=== PATIENT | female | born 1995 ===

== ENCOUNTER 2021-12-08 13:54 | Emergency (ER) | payer OTHER, SELFPAY ==
--- NOTE | ~2021-12-08 | XR_ITS ---
EXAMINATION: CHEST 2 VIEWS CLINICAL INFORMATION: COUGH, PAIN IN BACK WITH DEEP BREATHS. COMPARISON: No recent pertinent prior studies are available for comparison. TECHNIQUE: PA and lateral views of the chest obtained. FINDINGS: Lungs well-expanded. There is minimal blunting the right costophrenic angle suggesting a tiny right effusion and minimal atelectatic change. No focal infiltrate, edema, or pneumothorax. Cardiac and mediastinal silhouettes within normal limits for size. No acute bony abnormality. XR/XR chest 2V IMPRESSION: Tiny right effusion with minimal right basilar markings more likely reflecting a component of atelectasis
[2021-12-08 14:34] LABS: COVID-19 Test Negative (Negative); IDNOW Serial# 16C4AD1C
[2021-12-08 14:35] LABS: IDNOW Serial# 55D5AD1C; Influenza A Negative (Negative); Influenza B2 Negative (Negative)
[2021-12-08 14:37] VITALS: BP 107/72; PULSE 115; RESP 20; TEMP 38.2; O2SAT 95
--- NOTE | 2021-12-08 14:39 | ED.ASTHMA ---
HPI - Asthma General Chief Complaint: Asthma Stated Complaint: Asthma Time Seen by Provider: 12/08/21 14:38 Source: patient and family Mode of arrival: ambulatory Limitations: no limitations History of Present Illness HPI Narrative: 26-year-old female with a history of asthma here with reports of cough, wheezing, chest discomfort with coughing, subjective fevers since last evening. Patient using her albuterol inhaler, nebulizer with continued symptoms. Patient tells me she ran out of her Purfreshir for a few months. She moved to [facility] [place] from [place] and has not established a primary care doctor. She does have an appointment in February for her initial visit. Patient tells me she has history of multiple admissions in [place] for asthma exacerbation with several ICU admissions. No history of intubation. NO leg swelling, leg pain, SOB, no OCP use Related Data Previous Rx's Medication Instructions Recorded albuterol sulfate 2.5 mg (3 mL) INHALATION Q4H PRN 12/08/21 #75 ml benzonatate 200 mg capsule 200 mg PO TID PRN #20 cap 12/08/21 montelukast 10 mg tablet 10 mg PO DAILY #60 tab 12/08/21 (Singulair) prednisone 20 mg tablet 40 mg PO DAILY #10 tab 12/08/21 Allergies Allergy/AdvReac Type Severity Reaction Status Date / Time No Known Allergies Allergy Verified 12/08/21 14:05 Review of Systems Review of Systems: Yes all other systems are reviewed and are negative Constitutional: Constitutional: Reports no additional constitutional complaints, Denies body ache(s), Denies chills, Reports fever(s) (subjective ), Denies headache(s) and Denies weakness Eyes: Eyes: Reports no additional eye complaints and Denies change in vision ENT: Reports system reviewed and no additional complaints, except as documented, Denies dizziness, Denies headache(s), Denies nasal congestion, Denies nasal discharge and Denies neck pain Cardiovascular: Cardiovascular: Reports no additional cardiovascular complaints, Denies chest pain, Denies leg edema and Denies dyspnea Respiratory: Respiratory: Reports no additional respiratory complaints, Reports cough, Denies dyspnea and Reports wheezing Gastrointestinal: Gastrointestinal: Reports no additional gastrointestinal complaints, Denies abdominal pain, Denies diarrhea, Denies nausea and Denies vomiting Genitourinary: Genitourinary: Reports no additional female genitourinary complaints and Denies urinary incontinence Musculoskeletal: Musculoskeletal: Reports no additional musculoskeletal complaints, Denies back pain, Denies arthralgias, Denies joint swelling, Denies neck pain, Denies numbness and Denies tingling Integumentary/Breasts: Skin/Breast: Reports system reviewed and no additional complaints, except as docu and Denies rash Neurologic: Reports system reviewed and no additional complaints, except as documented, Denies Abnormal speech present, Denies dizziness, Denies headache(s), Denies numbness, Denies tingling and Denies weakness Allergic/Immunologic: Allergic/Immunologic: Reports wheezing [facility] Past Medical History Attestation statement: The following information was validated with the patient. Source: old records reviewed and nursing notes reviewed Medical History Asthma Social History Social History Alcohol intake: current Alcohol intake frequency: holidays/special occasions only Patient Tobacco Use Status: Never used Tobacco Use of substances other than those prescribed or required for medical reasons: No Advance Directives: No Advance Directives Information Provided: No Physical Exam Vital Signs: Vital Signs: Last Vital Signs Temp 100.3 F 12/08/21 16:28 Pulse 118 H 12/08/21 16:28 Resp 18 12/08/21 16:28 BP 115/66 12/08/21 16:28 Pulse Ox 93 12/08/21 16:28 BMI result Body Mass Index 0.0 Const: General: cooperative, healthy appearing, comfortable and no acute distress Orientation/consciousness: patient oriented x3 Limitations: no limitations HEENT: Head: Yes normal to inspection Ears: hearing grossly normal bilaterally General nose exam: Normal external nose present Face and sinus: Yes normal facial exam Mouth: Normal oral and palatal mucosa present Throat: Yes posterior oropharynx normal Eyes: General: appearance normal, both eyes and all related structures Pupils: Equal, round and reactive pupils present Neck: Neck: Yes normal visual inspection Chest: Chest palpation & inspection: normal inspection of the chest Resp: Other: Diminished breath sounds-mild tachypnea Cardio: Rate: regular rate Rhythm: regular rhythm Peripheral pulses: Peripheral pulses 2+ throughout GI: Inspection: Yes normal to inspection Palpation (GI): Soft to palpation and nontender Auscultation: normal bowel sounds Back/Spine/Pelvis: Thoracic/Lumbar Spine: thoracic and lumbar spine normal to inspection Skin: General skin exam: no rashes or lesions noted Neuro: General: patient oriented x3, no focal motor deficits and normal sensation to monofilament Cranial nerves: Yes Equal, round and reactive pupils present Cognition (Neuro): normal cognition Speech: No Abnormal speech present Gait exam (Neuro): Normal gait present Motor exam (neuro): 5/5 motor strength present throughout Extrem: General: Yes normal to inspection, Yes no pedal edema and Yes no calf tenderness Course Course Course Narrative: 26-year-old female here with reports of wheezing, cough subjective fevers with asthma symptoms the last few days. On arrival diminished breath sounds mild tachypnea. Will check flu and COVID testing, x-ray. Will give DuoNeb, Solu-Medrol magnesium and reassess Reevaluation(s) Reevaluation #1: COVID and flu testing are negative. Chest x-ray shows no acute finding. Labs unremarkable Patient feels better. Still has some tachycardia likely secondary to multiple albuterol treatments both at home and here. Patient walked with oxygen saturation greater than 94%. Resting comfortably in the room, texting on her cell phone, speaking full sentences. Lung sounds improved throughout. Plan for discharge home with course of prednisone, refill for albuterol, refill for a singular. Reviewed worrisome signs and symptoms of when to return to the emergency department. Comfortable discharge home. Time: 17:00 MDM - Asthma MDM Narrative Medical decision making narrative: viral syndrome Less likely PE with no risk factors (no OCP, no recent travel or surgery)-tachycardia from albuterol Differential Diagnosis Differential diagnosis: Likely Acute exacerbation and Pneumonia Medical Records Attestation: I reviewed the patient's medical records. Lab Data Attestation: I reviewed the patient's lab results. Result diagrams: 12/08/21 14:59 12/08/21 14:59 Labs: Lab Results 12/08/21 12/08/21 12/08/21 Range/Units 14:09 14:09 14:59 WBC 4.8 (4.8-10.8) X10*3/uL RBC 4.18 L (4.20-5.50) X10*6/uL Hgb 12.7 (12.0-16.0) g/dl Hct 38.0 (37.0-47.0) % MCV 90.9 (80.0-98.0) fL MCH 30.4 (27.0-33.0) pg MCHC 33.4 (31.0-35.0) g/dl RDW 12.6 (11.0-16.0) % Plt Count 160 (160-400) X10*3/uL MPV 10.6 (9.4-12.3) fL Immature Gran % (Auto) 0.2 (0.0-0.4) % Neut % (Auto) 78.5 H (45-73) % Lymph % (Auto) 11.2 L (20-40) % Dundy % (Auto) 9.1 (2-11) % Eos % (Auto) 0.8 (0-4) % Baso % (Auto) 0.2 (0-2) % Lymph # (Auto) 0.5 L (1.2-4.9) X10*3/uL Dundy # (Auto) 0.4 (0.1-1.2) X10*3/uL Eos # (Auto) 0.0 (0.0-0.4) X10*3/uL Baso # (Auto) 0.0 (0.0-0.2) X10*3/uL Abs Immat Gran (auto) 0.01 (0.00-0.03) X10*3/uL Absolute Neuts (auto) 3.8 (2.0-8.3) x10*3/uL Absolute Nucleated RBC 0.000 (0.0-0.012) X10*3/uL Nucleated RBC % (auto) 0.0 (0.0-0.2) /100WBC Sodium (135-145) mmol/L Potassium (3.3-5.1) mmol/L Chloride (96-108) mmol/L Carbon Dioxide (22-29) mmol/L Anion Gap (12-20) BUN (9-16) mg/dL Creatinine (0.5-1.4) mg/dL Estim Creat Clear Calc Estimated GFR Random Glucose (60-115) mg/dL Calcium (8.4-10.2) mg/dL COVID-19 (MARGRET) Negative (Negative) COVID-19 Clin Com See Note Influenza Type A (EDYTA) Negative (Negative) Influenza Type B (EDYTA) Negative (Negative) Influenza A & B Note See Note 12/08/21 Range/Units 14:59 WBC (4.8-10.8) X10*3/uL RBC (4.20-5.50) X10*6/uL Hgb (12.0-16.0) g/dl Hct (37.0-47.0) % MCV (80.0-98.0) fL MCH (27.0-33.0) pg MCHC (31.0-35.0) g/dl RDW (11.0-16.0) % Plt Count (160-400) X10*3/uL MPV (9.4-12.3) fL Immature Gran % (Auto) (0.0-0.4) % Neut % (Auto) (45-73) % Lymph % (Auto) (20-40) % Dundy % (Auto) (2-11) % Eos % (Auto) (0-4) % Baso % (Auto) (0-2) % Lymph # (Auto) (1.2-4.9) X10*3/uL Dundy # (Auto) (0.1-1.2) X10*3/uL Eos # (Auto) (0.0-0.4) X10*3/uL Baso # (Auto) (0.0-0.2) X10*3/uL Abs Immat Gran (auto) (0.00-0.03) X10*3/uL Absolute Neuts (auto) (2.0-8.3) x10*3/uL Absolute Nucleated RBC (0.0-0.012) X10*3/uL Nucleated RBC % (auto) (0.0-0.2) /100WBC Sodium 135 (135-145) mmol/L Potassium 3.7 (3.3-5.1) mmol/L Chloride 107 (96-108) mmol/L Carbon Dioxide 20 L (22-29) mmol/L Anion Gap 12 (12-20) BUN 10 (9-16) mg/dL Creatinine 0.81 (0.5-1.4) mg/dL Estim Creat Clear Calc TNP Estimated GFR > 60 Random Glucose 89 (60-115) mg/dL Calcium 8.7 (8.4-10.2) mg/dL COVID-19 (MARGRET) (Negative) COVID-19 Clin Com Influenza Type A (EDYTA) (Negative) Influenza Type B (EDYTA) (Negative) Influenza A & B Note Imaging Data Chest x-ray: Attestation: I personally reviewed and interpreted this imaging study as follows: Radiologist's impression: FINDINGS: Lungs well-expanded. There is minimal blunting the right costophrenic angle suggesting a tiny right effusion and minimal atelectatic change. No focal infiltrate, edema, or pneumothorax. Cardiac and mediastinal silhouettes within normal limits for size. No acute bony abnormality. XR/XR chest 2V IMPRESSION: Tiny right effusion with minimal right basilar markings more likely reflecting a component of atelectasis Discharge Plan Discharge Clinical Impression: Asthma with acute exacerbation, Acute viral syndrome Patient Disposition: Home, Self-Care Instructions: Asthma (DC), Viral Syndrome (ED) Additional Instructions: Start your prednisone tomorrow Increase fluids, rest Return for worsening shortness of breath, chest pain, high fever COVID testing and flu testing are negative Prescriptions: New prednisone 20 mg tablet 40 mg PO DAILY Qty: 10 0RF montelukast [Singulair] 10 mg tablet 10 mg PO DAILY Qty: 60 0RF albuterol sulfate 2.5 mg /3 mL (0.083 %) solution for nebulization 2.5 mg inhalation Q4H PRN (Reason: shortness of breath or wheezing) Qty: 75 0RF benzonatate 200 mg capsule 200 mg PO TID PRN (Reason: cough) Qty: 20 0RF Referrals: Physician,Unknown J [Primary Care Provider] - Stand Alone Forms: Work/School Release Interventions: ED Discharge Assessment Last Done: 12/08/21 17:15 Discharge Date/Time: 12/08/21 17:15 Print Language: Hungarian
[2021-12-08 14:59] VITALS: PULSE 95; RESP 18; O2SAT 98
[2021-12-08] MEDS: Albuterol/Iprat 2.5/0.5MG 3 ML AMPUL.NEB INHALE (14:59)
[2021-12-08] MEDS: Magnesium Sulfate/H2O 2 GM/50 ML PIGGYBACK IV (15:01)
[2021-12-08] MEDS: methylPREDNISolone Sod Succ 125 MG/2 ML VIAL IVPUSH (15:01)
[2021-12-08] MEDS: Acetaminophen 325 MG TABLET 975 MG PO (15:05)
[2021-12-08 15:06] VITALS: PULSE 110; RESP 18; O2SAT 96
[2021-12-08 15:07] LABS: MANUAL DIFF FLAG NO
[2021-12-08 15:09] LABS: Basophils Percent Auto 0.2 % (0-2); Eosinophils Percent Auto 0.8 % (0-4); Hemoglobin 12.7 g/dl (12.0-16.0); Imm Gran Abs Auto 0.01 X10*3/uL (0.00-0.03); Imm Gran Pct Auto 0.2 % (0.0-0.4); Lymphocytes Absolute Auto 0.5 X10*3/uL (1.2-4.9); Lymphocytes Percent Auto 11.2 % (20-40); Mean Corpuscular HGB Conc 33.4 g/dl (31.0-35.0); Mean Corpuscular Hemoglobin 30.4 pg (27.0-33.0); Mean Corpuscular Volume 90.9 fL (80.0-98.0); Mean Platelet Volume 10.6 fL (9.4-12.3); Monocytes Absolute Auto 0.4 X10*3/uL (0.1-1.2); Monocytes Percent Auto 9.1 % (2-11); Neutrophils Absolute Auto 3.8 x10*3/uL (2.0-8.3); Neutrophils Percent Auto 78.5 % (45-73); Platelet Count 160 X10*3/uL (160-400); Red Blood Count 4.18 X10*6/uL (4.20-5.50); Red Cell Distribution Width 12.6 % (11.0-16.0); White Blood Count 4.8 X10*3/uL (4.8-10.8)
[2021-12-08 15:21] LABS: Anion Gap 12 (12-20); Blood Urea Nitrogen 10 mg/dL (9-16); Calcium 8.7 mg/dL (8.4-10.2); Carbon Dioxide 20 mmol/L (22-29); Chloride 107 mmol/L (96-108); Estimated Glomerular Filt Rate > 60; Glucose Random 89 mg/dL (60-115); Potassium 3.7 mmol/L (3.3-5.1); Sodium 135 mmol/L (135-145)
--- NOTE | 2021-12-08 16:27 | PC.NURSE ---
took patient on a walk with pulse ox on. patient started out at 94 and maintainted an spo2 of 93 throughout. Patients heart rate started out around 135, steadily increasing and reaching a maximim of 175 by the end of the walk.
[2021-12-08 16:28] VITALS: BP 115/66; PULSE 118; RESP 18; TEMP 37.9; O2SAT 93
== END 2021-12-08 17:15 | disposition home or self-care (01) ==
PROVIDERS: Nurse Practitioner Family; Emergency Provider Emergency Medicine
DX: B34.9 Viral infection, unspecified (principal); J45.909 Unspecified asthma, uncomplicated; R05.9 Cough, unspecified; R07.89 Other chest pain; Z20.822 Contact with and (suspected) exposure to COVID-19; Z79.899 Other long term (current) drug therapy
CPT/HCPCS: 36415; 71046; 80048; 85025; 87502; 87635; 94640; 96365; 96366; 99284; J2930; J3475

== ENCOUNTER 2022-11-29 13:05 | Outpatient (REF) | payer OTHER, SELFPAY ==
[2022-11-29 16:18] LABS: Alanine Aminotransferase 9 U/L (0-31); Aspartate Amino Transferase 13 U/L (5-31); Cholesterol 126 mg/dL; Glucose Fasting 88 mg/dL (60-99); HDL Cholesterol 56 mg/dL; LDL Cholesterol Calculated 60 mg/dl; Triglycerides 52 mg/dL
[2022-11-29 16:33] LABS: Vitamin D 25-OH Total 22.8 ng/mL (>30)
== END 2022-11-29 13:06 | disposition home or self-care (01) ==
LOC: HO.HMGCLDS 13:05
PROVIDERS: PCP Internal Medicine; Visit Provider Internal Medicine
DX: Z00.00 Encounter for general adult medical examination without abnormal findings (principal); Z13.1 Encounter for screening for diabetes mellitus; Z13.220 Encounter for screening for lipoid disorders; J45.20 Mild intermittent asthma, uncomplicated
CPT/HCPCS: 36415; 80061; 82306; 82947; 84450; 84460

== ENCOUNTER 2023-02-12 11:05 | Outpatient (REF) | payer OTHER, SELFPAY | END 2023-02-12 11:06 | disposition home or self-care (01) | LOC: HO.LNP 11:05 | PROVIDERS: PCP Internal Medicine; Visit Provider Advanced Practice Midwife | DX: Z01.419 Encounter for gynecological examination (general) (routine) without abnormal findings (principal) | CPT/HCPCS: 88142 ==

== ENCOUNTER 2023-02-12 12:03 | Outpatient (REF) | payer OTHER, SELFPAY ==
[2023-02-12 16:25] LABS: CT PCR NOT DETECTED (Not Detect.); NG PCR NOT DETECTED (Not Detect.)
[2023-02-13 09:33] LABS: BV Int Neg Control Negative (Negative); BV Int Pos Control Positive (Positive)
[2023-02-13 12:13] LABS: Syphilis Screen Nonreactive (Nonreactive)
[2023-02-13 12:38] LABS: HBsAGNum1 0.44 S/CO (0.00-0.99); HIV AB/AG Nonreactive (Nonreactive); HIV Num 1 0.08 S/CO (0.00-0.99); Hepatitis B Surface Antigen Negative (Negative); ~HepC Num1 0.24 S/CO (0.00-0.79); ~Hepatitis C Antibody Nonreactive (Nonreactive)
== END 2023-02-12 12:04 | disposition home or self-care (01) ==
LOC: HO.LAB 12:03
PROVIDERS: PCP Internal Medicine; Visit Provider Advanced Practice Midwife
DX: Z11.4 Encounter for screening for human immunodeficiency virus [HIV] (principal); Z20.2 Contact with and (suspected) exposure to infections with a predominantly sexual mode of transmission
CPT/HCPCS: 0353U; 86780; 86803; 87340; 87389; 87480; 87510; 87660

== ENCOUNTER 2023-02-16 08:51 | Outpatient (REF) | payer OTHER, SELFPAY ==
--- NOTE | ~2023-02-16 | US_ITS ---
EXAMINATION: US DIAGNOSTIC ULTRASOUND BREAST, RIGHT CLINICAL INFORMATION: 27-year-old female with chronic palpable lesion right breast, increased by patient history. Prior history left breast surgery for solid mass, benign. COMPARISON: Outside breast ultrasound [place]/19/2013 [place] [place] TECHNIQUE: Ultrasound right breast is targeted to the upper breast and a lateral breast using grayscale imaging and color Doppler without and with harmonics. Patient is also able to point to the area of clinical concern lateral right breast at time of imaging. FINDINGS: There is a macrolobulated heterogeneous solid mass 9:30 position 5 cm from nipple measuring approximately 3.2 x 1.8 x 2.3 cm. This represents increased size from prior outside report dimensions 1.6 x 0.8 x 1.3 cm. There is no significant increased or decreased through transmission of sound. Scattered internal color flow is present on Doppler. There is no cystic or solid mass demonstrated at the upper right breast. Outside report notes a 1.9 x 0.8 cm solid mass at that time, not visualized on today's exam. No skin thickening or edema tracking in soft tissue planes. Results are discussed with the patient at time of visit, using an health promotion educator. The palpable mass corresponds to a macrolobulated solid lesion, likely fibroadenoma. This represents moderate increased size from prior outside exam 2013. Surgical consult is recommended. Patient notes upcoming appointment with Dr. Krissy Roman already scheduled. US/US breast RT limited IMPRESSION: -Macrolobulated solid mass 9:30 right breast 3.2 cm, increased in size from outside imaging report measurement of 1.6 cm in 2013. 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 ASSESSMENT: BI-RADS 4: Suspicious (subcategory 4A: Low suspicion for malignancy) RECOMMENDATION: Surgical consult for management of chronic large and solid mass lateral right breast, suspect fibroadenoma.
== END 2023-02-16 08:52 | disposition home or self-care (01) ==
LOC: HO.MAMMO 08:51
PROVIDERS: PCP Internal Medicine; Visit Provider Advanced Practice Midwife
DX: N63.11 Unspecified lump in the right breast, upper outer quadrant (principal)
CPT/HCPCS: 76642

== ENCOUNTER → 2023-03-02 14:55 | Outpatient (BNVA) | payer OTHER, SELFPAY | PROVIDERS: PCP Internal Medicine; Visit Provider Surgery ==

== ENCOUNTER 2023-04-14 06:02 | Day surgery (SDC) | payer OTHER, SELFPAY ==
[2023-04-10 08:39] VITALS: BMI 26.5
--- NOTE | 2023-04-13 08:31 | HO.ANESPROP2 ---
HPI - Anesthesia Eval Consult details Narrative: 27yo F for Right Breast Mass Excision PMFSH Active Problems Active Problems: All Active Problems (Updated 03/09/23 @ 16:04 by Zara Box CNM) Hx of breast surgery (Acute) Screen for sexually transmitted diseases (Acute) Well woman exam with routine gynecological exam (Acute) Screening for malignant neoplasm of cervix (Acute) Smoker unmotivated to quit (Acute) Tinea versicolor (Acute) Breast mass, right (Acute) Mild intermittent asthma (Acute) Past Medical History Medical History Breast mass, right Mild intermittent asthma Smoker unmotivated to quit Tinea versicolor Family History Family History Mother Diabetes mellitus Hyperlipidemia CAD (coronary artery disease) Essential hypertension Asthma Maternal Grandmother Breast cancer Surgical History Surgical History History of tubal ligation Hx of breast surgery Social History Social History Housing: Apartment Alcohol intake: current Alcohol intake frequency: holidays/special occasions only Patient Tobacco Use Status: Current everyday Tobacco user Tobacco use type: Cigarette Cigarettes Per Day: 3 e-Cigarette/Vaping Use: Currently Using (vape) Current occupational status: employed Cognitive needs: No Hearing needs: No Vision needs: No Meds Allergies Allergy/AdvReac Type Severity Reaction Status Date / Time No Known Allergies Allergy Verified 04/14/23 06:12 Exam Exam Date and Time: April 13, 2023 0831 Height,Weight and Vital Signs: Height 5 ft 6 in Weight 74.389 kg Assessment and Plan Assessment Anesthesia Assessment: Chart Reviewed
[2023-04-14] VITALS (9 sets, daily range): BP systolic 93–108; BP diastolic 50–64; PULSE 50–65; RESP 15–16; TEMP 36.2–37.1; O2SAT 97–98; BMI 24.2
[2023-04-14] MEDS: Lactated Ringers 1,000 ML 100 ML IVCONT (06:35)
--- NOTE | 2023-04-14 07:18 | MHC.SHP ---
Pre-Procedural Eval Section A Date of Service: 04/14/23 Section B Chief Complaint: Unspecified lump in the right breast, unspecified Details of Present Illness: has mobile, welldefined mass on right breast Relevant Family History (Specify if Yes): No Relevant Social History: None Present Medications: see Short Stay Collaborative assessment Medical History: Significant History (smoker, asthma) History of Previous Operations: No relevant previous surgery Allergies: Allergies Allergy/AdvReac Type Severity Reaction Status Date / Time No Known Allergies Allergy Verified 04/14/23 06:12 Review of Systems Sugical H&P ROS: Negative: Constitution, Cardiovascular, Respiratory, Neurological, Psychiatric, Hem-Onc, Allergic/Immunologic, Gastrointestinal, Genitourinary, Musculoskeletal, Integumentary, Endocrine and Eyes/Ears/Nose/Throat Exam Surgical H&P Exam: Normal: HEENT, Normal: Heart, Normal: Lungs, Normal: Extremities, Normal: Abdomen, Normal: Skin and Normal: Neurological Exam Comment: right breast mass Plan Diagnosis/Plan: Unchanged I have reviewed the history and physical and performed a pertinent physical examination on my patient. No changes have occurred unless specified. Time Spent With Patient Time: Total time managing care of this patient today ____ minutes.
--- NOTE | 2023-04-14 07:55 | HO.ANESPROP2 ---
[facility] Active Problems Active Problems: All Active Problems (Updated 03/09/23 @ 16:04 by Zara Box CNM) Hx of breast surgery (Acute) Screen for sexually transmitted diseases (Acute) Well woman exam with routine gynecological exam (Acute) Screening for malignant neoplasm of cervix (Acute) Smoker unmotivated to quit (Acute) Tinea versicolor (Acute) Breast mass, right (Acute) Mild intermittent asthma (Acute) Past Medical History Medical History Breast mass, right Mild intermittent asthma Smoker unmotivated to quit Tinea versicolor Functional capacity: independent ambulation Patient : No Family History Family History Mother Diabetes mellitus Hyperlipidemia CAD (coronary artery disease) Essential hypertension Asthma Maternal Grandmother Breast cancer Family history of problems with anesthesia: No Surgical History Surgical History History of tubal ligation Hx of breast surgery History of Problems with Anesthesia: No Social History Social History Housing: Apartment Alcohol intake: current Alcohol intake frequency: holidays/special occasions only Patient Tobacco Use Status: Current everyday Tobacco user Tobacco use type: Cigarette Cigarettes Per Day: 3 e-Cigarette/Vaping Use: Currently Using (vape) Use of substances other than those prescribed or required for medical reasons: Yes Substance Use Frequency: Daily Are you DNR?: No Advance Directives: No Advance Directives Information Provided: Yes Current occupational status: employed Cognitive needs: No Hearing needs: No Vision needs: No Meds Allergies Allergy/AdvReac Type Severity Reaction Status Date / Time No Known Allergies Allergy Verified 04/14/23 06:12 Active Medications: Current Medications Albuterol Sulfate (Albuterol Sulfate (0.083%) 2.5 Mg/3 Ml Vial.Neb) 2.5 mg INHALE ONCE PRN PRN Reason: Shortness of Breath/Wheezing Lactated Ringer's (Lr) 1,000 mls @ 100 mls/hr IVCONT .Q10H JEFFRY Last Admin: 04/14/23 06:35 Dose: 100 mls/hr Exam Exam Date and Time: April 14, 2023 0755 Height,Weight and Vital Signs: Height 5 ft 6 in Weight 68.039 kg Last Vital Signs Temp 97.1 F 04/14/23 06:18 Pulse 65 04/14/23 06:18 Resp 15 04/14/23 06:18 BP 104/64 04/14/23 06:18 Pulse Ox 98 04/14/23 06:18 O2 Del Method Room Air 04/14/23 06:18 Airway Mallampati Class: II TM Dist: >3cm Heart: RRR Lungs: CTA Assessment and Plan Assessment Anesthesia Assessment: Anesthesia Plan Discussed and Smoking Cess. Discussed Final Anesthetic Review Family History of Problems with Anesthesia: No History of Problems with Anesthesia: No NPO: Yes ASA Class: II Final Preanesthetic Review: Meds/Allgs Chart Reviewed, Consent Obtained/Reviewed and Anes Risks/Benef Reviewed Patient Risk: Low Procedure Risk: Low Anesthetic Plan Anesthetic Plan: GA Disposition: Standard PACU
--- NOTE | 2023-04-14 08:15 | P.OP_ITS ---
Operative Note Operative Note Date of Service: 04/14/23 Narrative: Diagnosis: Right breast mass, likely fibroadenoma Postop diagnosis: The same Procedure: Excision of right breast mass Surgeon: Romero Roman MD The patient is a 27-year-old female with the mobile right breast mass on the lateral aspect of the right breast, with ultrasound findings suggestive of a fibroadenoma. In view of the size, she wants to proceed with excision. She understood technique of the procedure as well as the risks, benefits, and alternatives. She was brought to the operating room placed supine under general anesthesia via laryngeal mask airway. The right breast was prepped and draped in the usual sterile fashion. A surgical time-out was done. The patient received cefazolin 2 g IV preoperatively The planned line of incision was infiltrated with lidocaine 1%. I made a transverse incision on the skin overlying the mass using blade 15. This was carried down through the full-thickness of the skin subcutaneous fat using a quadrant ill the mass was visualized. I applied an Allis clamp on the mass for traction. I sharply dissected the mass off of the rest of the breast tissue using curved Marsh scissors as well as electrocautery. This was done circumferentially until the mass was delivered. This measured 2.5 cm, was well- defined and rubbery consistent with a fibroadenoma. I achieved hemostasis on the excision site using electrocautery. I irrigated and once hemostasis was confirmed, I reapposed the deep subcutaneous tissue and breast tissue with Polysorb 3-0 simple interrupted sutures. Skin closure was achieved with polyps of 4-0 subcuticular running sutures. Steri-Strips and dressings were applied. The area was infiltrated with Marcaine 0.5% for postop analgesia. The procedure was completed. The patient tolerated procedure well. There were no immediate complications. Initial and final counts of sponges and instruments were correct. Estimated blood loss was about 25 cc. The patient was extubated without difficulty and transferred to the recovery room with stable vital signs.
--- NOTE | 2023-04-14 10:12 | HO.POSTANES ---
Post Anesthesia Evaluation Post Anesthesia Evaluation Date of Service: 04/14/23 Vital Signs: Vital Signs Temp Pulse Resp BP Pulse Ox O2 Del Method 04/14/23 09:39 98.7 F 59 16 98/54 L 97 Room Air 04/14/23 09:26 98.7 F 62 16 93/50 L 97 Room Air 04/14/23 09:11 56 16 93/53 L 97 Room Air 04/14/23 08:56 54 16 94/59 L 97 Room Air 04/14/23 08:41 50 16 96/57 L 97 Room Air 04/14/23 08:36 54 16 95/60 97 Room Air 04/14/23 08:31 56 16 96/58 L 97 Room Air 04/14/23 08:26 98.7 F 58 16 108/61 97 Room Air 04/14/23 06:18 97.1 F 65 15 104/64 98 Room Air Anesthesia: General LMA Mental Status: Awake Pain Control: Satisfactory Nausea/Vomiting: None Hydration: Adequate Anesthesia-Related Issues: No Anes. Related Issues
== END 2023-04-14 10:10 | disposition home or self-care (01) ==
PROVIDERS: PCP Internal Medicine; Visit Provider Surgery
PROC: (CPT 19120; principal; 2023-04-14 07:30)
DX: D24.1 Benign neoplasm of right breast (principal); N60.21 Fibroadenosis of right breast; N60.81 Other benign mammary dysplasias of right breast; N64.4 Mastodynia; B36.0 Pityriasis versicolor; J45.20 Mild intermittent asthma, uncomplicated; Z79.51 Long term (current) use of inhaled steroids; Z79.899 Other long term (current) drug therapy; F17.210 Nicotine dependence, cigarettes, uncomplicated; Z98.890 Other specified postprocedural states
CPT/HCPCS: 19120; 88305; 88307; J0690; J2250; J2405; J3010

== ENCOUNTER → 2023-04-14 06:02 | Outpatient (BNV) | payer OTHER, SELFPAY | PROVIDERS: PCP Internal Medicine; Visit Provider Surgery | DX: N60.21 Fibroadenosis of right breast (principal) | CPT/HCPCS: 19120 ==

== ENCOUNTER 2023-06-06 12:56 | Emergency (ER) | payer OTHER, SELFPAY ==
[2023-06-06 13:12] VITALS: BP 96/70; PULSE 81; RESP 18; TEMP 36.6; O2SAT 98; BMI 24.4
--- NOTE | 2023-06-06 13:12 | ED.ASTHMA ---
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 Patient reports this began after cleaning her house and being around a lot of dust. Patient reports she takes Singulair daily, Claritin daily and has an albuterol inhaler which she uses as needed. She has a history of hospitalization while she was living in [place] many years ago. No history of intubation. Patient denies any recent illnesses. No recent travel. No chest pain, leg swelling, leg pain, fevers or chills. Related Data Previous Rx's Medication Instructions Recorded montelukast 10 mg tablet 10 mg PO DAILY #30 tabs 10/01/22 (Singulair) albuterol sulfate 90 mcg/actuation 2 puff inhalation Q6H PRN 02/19/23 aerosol inhaler (Ventolin HFA) shortness of breath or wheezing #8.5 grams ibuprofen 600 mg tablet 600 mg PO Q6H PRN pain #30 tabs 04/14/23 tramadol 50 mg tablet 50 mg PO Q6H PRN pain #20 tabs 04/14/23 albuterol sulfate 2.5 mg/0.5 mL 5 mg inhalation QID PRN shortness 06/06/23 solution for nebulization of breath or wheezing #30 ea prednisone 20 mg tablet 40 mg (2 x 20 mg) PO DAILY #8 tabs 06/06/23 Allergies Allergy/AdvReac Type Severity Reaction Status Date / Time No Known Allergies Allergy Verified 06/06/23 13:12 Review of Systems Review of Systems: Yes all other systems are reviewed and are negative Constitutional: Constitutional: Reports no additional constitutional complaints, Denies body ache(s), Denies chills, Denies fever(s), Denies headache(s) and Denies weakness Eyes: Eyes: Reports no additional eye complaints and Denies change in vision ENT: Reports system reviewed and no additional complaints, except as documented, Denies dizziness, Denies headache(s), Denies nasal congestion, Denies nasal discharge and Denies neck pain Cardiovascular: Cardiovascular: Reports no additional cardiovascular complaints, Denies chest pain, Denies leg edema and Denies dyspnea Respiratory: Respiratory: Reports no additional respiratory complaints, Reports cough, Denies dyspnea and Reports wheezing Gastrointestinal: Gastrointestinal: Reports no additional gastrointestinal complaints, Denies abdominal pain, Denies diarrhea, Denies nausea and Denies vomiting Genitourinary: Genitourinary: Reports no additional female genitourinary complaints and Denies urinary incontinence Musculoskeletal: Musculoskeletal: Reports no additional musculoskeletal complaints, Denies back pain, Denies arthralgias, Denies joint swelling, Denies neck pain, Denies numbness and Denies tingling Integumentary/Breasts: Skin/Breast: Reports system reviewed and no additional complaints, except as docu and Denies rash Neurologic: Reports system reviewed and no additional complaints, except as documented, Denies Abnormal speech present, Denies dizziness, Denies headache(s), Denies numbness, Denies tingling and Denies weakness Allergic/Immunologic: Allergic/Immunologic: Reports wheezing PMFSH Past Medical History Attestation statement: The following information was validated with the patient. Source: old records reviewed and nursing notes reviewed Medical History Smoker unmotivated to quit Tinea versicolor Breast mass, right Mild intermittent asthma Surgical History History of breast surgery (~04/14/23) History of tubal ligation Hx of breast surgery Family History Family History Mother Diabetes mellitus Hyperlipidemia CAD (coronary artery disease) Essential hypertension Asthma Maternal Grandmother Breast cancer Social History Social History Housing: Apartment Alcohol intake: current Alcohol intake frequency: holidays/special occasions only Patient Tobacco Use Status: Current everyday Tobacco user Tobacco use type: Cigarette Cigarettes Per Day: 3 e-Cigarette/Vaping Use: Currently Using (vape) Advance Directives: No Advance Directives Information Provided: Yes Current occupational status: employed Cognitive needs: No Hearing needs: No Vision needs: No Physical Exam Vital Signs: Vital Signs: Last Vital Signs Temp 97.8 F 06/06/23 13:12 Pulse 74 06/06/23 16:11 Resp 18 06/06/23 16:10 BP 96/70 06/06/23 13:12 Pulse Ox 96 06/06/23 16:11 O2 Del Method Room Air 06/06/23 16:11 BMI result Body Mass Index 24.4 Const: General: cooperative, healthy appearing, comfortable and no acute distress Orientation/consciousness: patient oriented x3 Limitations: no limitations HEENT: Head: Yes normal to inspection Ears: hearing grossly normal bilaterally General nose exam: Normal external nose present Face and sinus: Yes normal facial exam Mouth: Normal oral and palatal mucosa present Throat: Yes posterior oropharynx normal Eyes: General: appearance normal, both eyes and all related structures Pupils: Equal, round and reactive pupils present Neck: Neck: Yes normal visual inspection Chest: Chest palpation & inspection: normal inspection of the chest Resp: Effort & Inspection: normal respiratory effort Auscultation: wheezes Cardio: Rate: regular rate Rhythm: regular rhythm Peripheral pulses: Peripheral pulses 2+ throughout GI: Inspection: Yes normal to inspection Palpation (GI): Soft to palpation and nontender Auscultation: normal bowel sounds Back/Spine/Pelvis: Thoracic/Lumbar Spine: thoracic and lumbar spine normal to inspection Skin: General skin exam: no rashes or lesions noted Neuro: General: patient oriented x3, no focal motor deficits and normal sensation to monofilament Cranial nerves: Yes Equal, round and reactive pupils present Cognition (Neuro): normal cognition Speech: No Abnormal speech present Gait exam (Neuro): Normal gait present Motor exam (neuro): 5/5 motor strength present throughout Extrem: General: Yes normal to inspection Course Course Course Narrative: RME - 27 yo female with history of mild intermittent asthma, active smoker who presents to the ER for evaluation of worsening asthma and chest tightness that started yesterday after cleaning a room with a lot of dust. She has been using her albuterol inhaler without relief. Diffusely wheezy throughout in triage with SPO2 95-97%, no resp distress. Plan: bronch protocol, prednisone, CXR Reevaluation(s) Reevaluation #1: 1615- viral testing negative. Chest x-ray pending. Continued wheezing. Will repeat nebulizer Reevaluation #2: 1700- lungs are clear throughout. Patient feels improved. Saturations are stable. Will discharge home with prednisone course. Reviewed worrisome signs and symptoms of when to return to the emergency room. Comfortable plan for discharge home. Medications Administered Discontinued Medications Generic Name Dose Route Start Last Admin Trade Name Maranda PRN Reason Stop Dose Admin Albuterol Sulfate 2.5 mg/ 5 mg 06/06/23 13:26 06/06/23 13:32 Albuterol Sulfate 2.5 mg INHALE 06/06/23 13:27 5 mg ONCE ONE Administration Albuterol Sulfate 5 mg 06/06/23 15:56 06/06/23 16:08 Albuterol Sulfate (0.083%) 2.5 Mg/3 Ml Vial.Neb INHALE 06/06/23 15:57 5 mg ONCE ONE Administration Prednisone 60 mg 06/06/23 13:14 06/06/23 14:04 Prednisone 20 Mg Tablet PO 06/06/23 13:15 60 mg ONCE ONE Administration Medical Decision Making Medical Decision Making MDM Narrative: 27-year-old female with history of asthma presents to the ER with complaints of cough and wheezing since yesterday. Patient reports this began after cleaning her house and being around a lot of dust. Patient reports she takes Singulair daily, Claritin daily and has an albuterol inhaler which she uses as needed. She has a history of hospitalization while she was living in [place] many years ago. No history of intubation. Patient denies any recent illnesses. No recent travel. No chest pain, leg swelling, leg pain, fevers or chills. Inspiratory and expiratory wheezing throughout. Patient will have viral testing done, received albuterol nebulizer and p.o. prednisone will reassess. Differential Diagnosis Differential Diagnoses: The differential diagnosis associated with the presentation includes Asthma exacerbation, viral syndrome low concern for PE with perc 0 Admission/Observation Consideration of admission/observation: Escalation of care including admission/observation considered no hypoxia, not requiring supplemental oxygen. No need for admission. Lab Data MDM Lab Attestation statement: I reviewed the patient's lab results. viral testing negative Labs: Lab Results 06/06/23 Range/Units 13:30 Influenza Type A (PCR) NEGATIVE (Negative) Influenza Type B (PCR) NEGATIVE (Negative) RSV RNA Qual (PCR) NEGATIVE (Negative) SARS-CoV-2 RNA (RT-PCR) NEGATIVE (Negative) Independent Interpretation I performed an independent interpretation of an: Plain X-Ray Interpretation: I independently reviewed the chest x-ray and agree with the radiology report Radiology Impression Discussion of test interpretation with radiology: I have reviewed the radiologist's reading. Radiologist Impression: [id number] [place] [address] XRay Report Signed Patient: Sung Rios MR#: [id number] : 1995 Acct:[id number] Age/Sex: 27 / F ADM Date: 06/06/23 Loc: HO.ED Attending Dr: Ordering Physician: Nini Ceja Date of Service: 06/06/23 Procedure(s): XR chest 1V Accession Number(s): [id number] cc: Autumn Diaz MD; Nini Ceja~ EXAMINATION: XR CHEST CLINICAL INFORMATION: Cough. Shortness of breath. Asthma. COMPARISON: Report from prior chest radiograph done on 12/08/2021. TECHNIQUE: Frontal view of the chest was obtained. FINDINGS: No significant abnormality is noted involving the heart, lungs, mediastinum, bony thorax or soft tissues. XR/XR chest 1V IMPRESSION: Unremarkable examination. Prescription Management I considered prescription management with: Antibiotic Discharge Plan Discharge Clinical Impression: Asthma with acute exacerbation Patient Disposition: Home, Self-Care Instructions: Asthma (ED) Additional Instructions: Start prednisone tomorrow Use the inhaler as needed with spacer Your testing for flu, COVID, RSV are negative. Your x-ray shows no signs of pneumonia. Empezar prednisona ma?luis Use el inhalador seg?n sea necesario con el espaciador Anya pruebas de gripe, COVID y RSV son negativas. Dsouza radiograf?a no muestra signos de neumon?a. Prescriptions: New prednisone 20 mg tablet 40 mg PO DAILY Qty: 8 0RF albuterol sulfate 2.5 mg/0.5 mL solution for nebulization 5 mg inhalation QID PRN (Reason: shortness of breath or wheezing) Qty: 30 0RF No Action albuterol sulfate [Ventolin HFA] 90 mcg/actuation HFA aerosol inhaler 2 puff inhalation Q6H PRN (Reason: shortness of breath or wheezing) Qty: 8.5 2RF tramadol 50 mg tablet 50 mg PO Q6H PRN (Reason: pain) Qty: 20 0RF ibuprofen 600 mg tablet 600 mg PO Q6H PRN (Reason: pain) Qty: 30 0RF montelukast [Singulair] 10 mg tablet 10 mg PO DAILY Qty: 30 5RF Referrals: Autumn Diaz MD [Primary Care Provider] - 1 week (as needed) Print Language: Azerbaijani
[2023-06-06 13:32] VITALS: PULSE 78; RESP 18; O2SAT 98
--- NOTE | 2023-06-06 13:33 | PC.NURSE ---
viral swabs obtained, pt SpO2 98% on RA prior to breathing tx
[2023-06-06 14:03] VITALS: PULSE 81; O2SAT 97
[2023-06-06 15:56] VITALS: PULSE 89; RESP 18; O2SAT 96
--- NOTE | 2023-06-06 15:56 | PC.NURSE ---
this RN listened to lung ochoa. Pt is wheezy bilaterally mainly in the upper lobes, unrelieved by coughing. pt reports feeling like she would benefit from another treatment, MOHAMUD Patterson aware
--- NOTE | 2023-06-06 16:05 | PC.NURSE ---
pt updated on status of XR, pt reports still feeling wheezy- Wood Technologist Pascucci Aware, albuterol updraft ordered, respiratory notified.
[2023-06-06 16:10] VITALS: PULSE 89; RESP 18; O2SAT 96
--- NOTE | 2023-06-06 16:10 | PC.NURSE ---
respiratory at bedside- pt currently on albuterol updraft SpO2 96% HR 74
[2023-06-06 16:11] VITALS: PULSE 74; O2SAT 96
== END 2023-06-06 17:12 | disposition home or self-care (01) ==
PROVIDERS: Emergency Provider Emergency Medicine Emergency Medical Services; PCP Internal Medicine
DX: J45.901 Unspecified asthma with (acute) exacerbation (principal); R06.02 Shortness of breath; Z20.822 Contact with and (suspected) exposure to COVID-19; Z20.828 Contact with and (suspected) exposure to other viral communicable diseases; F17.210 Nicotine dependence, cigarettes, uncomplicated; Z79.899 Other long term (current) drug therapy
CPT/HCPCS: 0241U; 71045; 94640; 99284

== ENCOUNTER 2023-12-01 10:33 | Outpatient (REF) | payer OTHER, SELFPAY ==
[2023-12-02 02:53] LABS: CT PCR NOT DETECTED (Not Detect.); NG PCR NOT DETECTED (Not Detect.)
[2023-12-02 13:09] LABS: BV Int Neg Control Negative (Negative); BV Int Pos Control Positive (Positive)
== END 2023-12-01 10:34 | disposition home or self-care (01) ==
LOC: HO.LAB 10:33
PROVIDERS: PCP Internal Medicine; Visit Provider Advanced Practice Midwife
DX: Z01.419 Encounter for gynecological examination (general) (routine) without abnormal findings (principal); Z20.2 Contact with and (suspected) exposure to infections with a predominantly sexual mode of transmission; B36.0 Pityriasis versicolor; N89.8 Other specified noninflammatory disorders of vagina
CPT/HCPCS: 0353U; 87480; 87510; 87660

== ENCOUNTER 2023-12-01 10:33 | Outpatient (AMB) | payer OTHER, SELFPAY ==
--- NOTE | 2023-12-01 10:38 | MHC.OFFVIS ---
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 Present Allergies No Known Allergies Allergy (Verified 12/01/23 10:39) Medication List - Last Reconciled 12/01/23 by Zara Box CNM albuterol sulfate 5 mg inhalation QID PRN albuterol sulfate 90 mcg/actuation (Ventolin HFA) 2 puffs inhalation Q6H PRN ibuprofen 600 mg PO Q6H PRN montelukast (Singulair) 10 mg PO DAILY prednisone 40 mg (2 x 20 mg) PO DAILY tramadol 50 mg PO Q6H PRN Is last menstrual period known: Yes Last menstrual period: 11/10/23 Do you need a note to return to daycare/school/sports/work: No HPI ?BV HPI Details Patient is here because she has having a vaginal discharge and she mentioned when making the appointment it that it might be BV. She said that it does have a little bit of an odor. She also remembered that last year when she had an infection she states that I gave her Diflucan for yeast infection and when she took it it cleared up tinea that she had on her chest and her back almost completely. She would like a refill regardless on that. She has a history of a tubal ligation so does not need to worry about see she also has noticed a clear very clear abundant discharge at this current time, [facility] Medical History (Updated 12/01/23 @ 11:21 by Zara Box CNM) Smoker unmotivated to quit Tinea versicolor Breast mass, right Mild intermittent asthma Surgical History History of breast surgery (~04/14/23) History of tubal ligation Hx of breast surgery Family History Mother Diabetes mellitus Hyperlipidemia CAD (coronary artery disease) Essential hypertension Asthma Maternal Grandmother Breast cancer Social History Housing: Apartment Alcohol intake: current Alcohol intake frequency: holidays/special occasions only Patient Tobacco Use Status: Current everyday Tobacco user Tobacco use type: Cigarette Cigarettes Per Day: 3 e-Cigarette/Vaping Use: Currently Using Current occupational status: employed Cognitive needs: No Hearing needs: No Vision needs: No Female Reproductive History Menstrual Age of Menarche: 7 Duration of menses: 3-5 days Date of last menstrual period: 11/10/23 control method: permanent sterilization Total pregnancies: 2 Full term: 2 Date of last pap smear: 02/13/23 (negative) History of abnormal pap smear: No Physical Exam Vital Signs: Last Vital Signs BP 118/62 12/01/23 10:39 BMI result Body Mass Index 24.7 Other: Vagina is pink and moist with thin white discharge which might be consistent with very mild yeast additionally nulliparous cervix is pink and clear with fertile type mucus which I showed the patient. She is in fact midcycle. External Female Exam: normal external appearance and normal appearance of the urethra Speculum Exam - Vagina: normal appearance of the vagina and normal vaginal discharge Speculum Exam - Cervix: normal appearance of the cervix and Cervical os closed Skin Other: She showed me a large patch on her back of darkened skin with slightly pink borders consistent with a tinea. Previously noted as tinea versicolor. She said it responded very well to Diflucan given for yeast infection last year. Assessment & Plan Assessment & Plan (1) Tinea versicolor: Comment: I recommend Selsun Blue shampoo applied daily and shower, patient states that Diflucan prescribed last year for yeast infection cleared it up very well and did request refill on that today. Code(s): B36.0 - Pityriasis versicolor (2) Vaginal discharge: Code(s): N89.8 - Other specified noninflammatory disorders of vagina Plan Testing done today for gonorrhea chlamydia trichomoniasis Sandy and Gardnerella. Patient is curious about self-care and did while so want to know about boric acid capsule use and she may use those if desires we will await full testing however as it is possible that her discharge is more consistent with very mild yeast accompanied by very fertile clear mucus, and since she also desires re-treatment for yeast that will also treat her tinea I am going to prescribe the Diflucan for her with refills. I also recommend that she show her tinea to her primary care provider and obtain her opinion about it but I also recommend Selsun Blue shampoo to be used on a daily basis to leave on for 5 minutes in the shower and then rinse off(apply to affected areas) Orders: Orders CT NG by PCR Today Z01.419 - Encounter for gynecological examination (general) (routine) without abnormal findings Bacterial Vaginosis Panel Today Z20.2 - Contact with and (suspected) exposure to infections with a predominantly sexual mode of transmission Medications: New fluconazole may repeat second dose 72 hrs after first dose if symptoms persist 150 mg PO Q3D 2 doses 2 tabs 3RF Coding Level of Care Code Est Pt Level 3 (73986) Diagnoses Tinea versicolor B36.0 Vaginal discharge N89.8
[2023-12-01 10:39] VITALS: BP 118/62; BMI 24.7
== END 2023-12-01 11:37 | disposition home or self-care (01) ==
PROVIDERS: PCP Internal Medicine; Visit Provider Advanced Practice Midwife
DX: B36.0 Pityriasis versicolor (principal); N89.8 Other specified noninflammatory disorders of vagina
CPT/HCPCS: 99213

== ENCOUNTER 2024-03-25 13:52 | Outpatient (REF) | payer OTHER, SELFPAY ==
[2024-03-25 19:38] LABS: Bacterial Vaginosis PCR POSITIVE (Negative); Candida Group PCR NOT DETECTED (Not Detect); Candida glab krusei PCR NOT DETECTED (Not Detect); Trichomonas vaginalis PCR NOT DETECTED (Not Detect)
[2024-03-25 20:04] LABS: CT PCR NOT DETECTED (Not Detect.); NG PCR NOT DETECTED (Not Detect.)
== END 2024-03-25 13:53 | disposition home or self-care (01) ==
LOC: HO.LAB 13:52
PROVIDERS: PCP Internal Medicine; Visit Provider Advanced Practice Midwife
DX: N89.8 Other specified noninflammatory disorders of vagina (principal); Z20.2 Contact with and (suspected) exposure to infections with a predominantly sexual mode of transmission
CPT/HCPCS: 0352U; 87491; 87591

== ENCOUNTER 2024-03-25 13:52 | Outpatient (AMB) | payer OTHER, SELFPAY ==
--- NOTE | 2024-03-25 13:56 | A.OFFVIS_ITS ---
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 She has her tubes tied so she does not need to worry about control she had a breast mass removed last March that turned out not to be worrisome she also had 1 removed many many years ago as well that was benign. She does not feel anything this year. She does not have any particular worries but she would like full testing for STIs. Her periods are normal her last 1 came March 13 to the . [facility] Medical History Smoker unmotivated to quit Tinea versicolor Breast mass, right Mild intermittent asthma Surgical History History of breast surgery (~04/14/23) History of tubal ligation Hx of breast surgery Family History Mother Diabetes mellitus Hyperlipidemia CAD (coronary artery disease) Essential hypertension Asthma Maternal Grandmother Breast cancer Social History Housing: Apartment Alcohol intake: current Alcohol intake frequency: holidays/special occasions only Patient Tobacco Use Status: Current everyday Tobacco user Tobacco use type: Cigarette Cigarettes Per Day: 3 e-Cigarette/Vaping Use: Currently Using Current occupational status: employed Cognitive needs: No Hearing needs: No Vision needs: No Female Reproductive History Menstrual Age of Menarche: 7 Duration of menses: 3-5 days Date of last menstrual period: 03/13/24 control method: permanent sterilization Total pregnancies: 2 Full term: 2 Date of last pap smear: 02/13/1923 (negative) History of abnormal pap smear: No Physical Exam Vital Signs: Last Vital Signs BP 110/60 03/25/24 13:58 BMI result Body Mass Index 25.3 Const General: healthy appearing, comfortable, no acute distress, well developed and alert Nutritional Appearance: average body habitus Orientation/consciousness: patient oriented x3 Limitations: no limitations HEENT Head: Yes normocephalic Neck Neck: Yes normal visual inspection Chest Chest palpation & inspection: normal inspection of the chest Breast/axilla inspection: normal inspection of the breasts and normal inspection of the axillae Breast/axilla palpation: normal palpation of the breasts and normal palpation of the axillae Resp Effort & Inspection: normal respiratory effort GI Inspection: Yes normal to inspection, No Abdominal wall edema and No distended Palpation (GI): Soft to palpation and nontender Other: External exam within normal limits vagina is pink and moist cervix multiparous pink clear healthy appearing mucus uterus midposition mobile nontender. Adnexa nontender. Fair tone with Kegel encouraged to do more tightening exercises. General: Yes bladder normal to palpation External Female Exam: normal external appearance and normal appearance of the urethra Speculum Exam - Vagina: normal appearance of the vagina, normal palpation and normal vaginal discharge Speculum Exam - Cervix: normal appearance of the cervix, normal palpation and nontender Bimanual exam- vagina & uterus: normal bimanual exam, normal palpation, uterine size normal, bladder normal to palpation, consistency normal, normal palpation, uterine mobility normal, uterine shape normal, No Cervical tenderness present, non-tender and no cervical motion tenderness Bimanual Exam- Adnexa, other: normal adnexae, no masses, normal and No adnexal tenderness Neuro General: patient oriented x3 Results Reviewed Results Reviewed: Name: Sung Rios Age/Sex: 27/F Attending: Romero Roman MD : 1995 Submitted by: Romero Roman MD Copies to: Autumn Diaz MD MR #: [id number] Status: [facility] Collected: 04/14/23 Location: [facility] Received: 04/14/23 Diagnosis Right breast, mass, excision: Fibroadenoma with focal sclerosing adenosis and apocrine metaplasia, present at the margins; no evidence of malignancy.. Clinical History Unspecified lump right breast mass Microscopic Description Microscopic sections reviewed. Material Received Right breast mass unspecified Gross Description Received in formalin labeled ?right breast mass? is a 4.8 x 3.4 x 1.0-2.2 cm shaggy, rubbery, multinodular portion villegas, white-pink and guajardo-yellow fibrofatty breast tissue. No sutures are present to orient the specimen. There is an approximately 3.0 cm in greatest dominant palpable mass. The margins are inked and the specimen is serially sectioned to reveal a well- circumscribed, yet, non- encapsulated multinodular mass measuring 3.0 x 2.8 x 2.2 cm which abuts the inked peripheral margins of resection, however, is covered by a membrane of fibrofatty breast tissue. No fleshy, hemorrhagic or necrotic foci are identified. The mass is well-demarcated from the adjacent and remaining fibrofatty breast tissue which is composed of predominantly dense, rubbery, firm, villegas-pink fibrous tissue with a lesser amount of adipose tissue. No additional lesions or nodules are iden tified. The mass is entirely submitted in cassettes A1-A6 to include the peripheral margins and adjacent breast tissue and sections from the remaining breast tissue are submitted in cassettes A7. CEDS This case was reviewed intradepartmentally. Copies To Autumn Diaz MD [address] [place] [address] Dr. Calderon, [place] [id number] Romero Roman MD Patient: Sung Rios Age/Sex: 27/F MR#: [id number] Page 1 of 2 Surgical Pathology [id number] [place] [address] Dr. Domingo [place] [id number] NOTE: Unless otherwise stated, all tissue is formalin-fixed and paraffin-embedde d. Some or all of the immunohistochemical tests reported herein may have been developed and their performance characteristics determined by [facility]. They have not been cleared or approved by the U.S. Food and Drug Administration (FDA). However, the FDA has determined that such clearance or approval is not necessary. This laboratory is certified under the Clinical Laboratory Improvement Amendments of 1988 (CLIA) as qualified to perform high complexity clinical laboratory testing. Electronically Signed By: Lilo Sparks 04/15/23 [id number] Patient: Oswald Rioshaydee Age/Sex: 27/F MR#: [id number] ------- jer: Sung Rios Age/Sex: 27/F Attending: Zara Box CNM : 1995 Submitted by: Zara Box CNM Copies to: Autumn Diaz MD MR #: [id number] Status: DEP REF Collected: 02/12/23 Location: [facility] Received: 02/13/23 Interpretation Satisfactory for evaluation. Coccobacilli consistent with shift in vaginal gunjan. Negative for intraepithelial lesion or malignancy. Clinical Information LMP: 01/12/23 Previous PAP test: Unknown date/findings Material Received ThinPrep-Cervical Copies To Autumn Diaz MD [address] [facility] [address] [place], [place] [id number] [place],[address] [place] [address] Electronically Signed By: ANA Carlin (ASCP) 03/09/23 1410 The Pap Test is a screening procedure with the inherent possibility of both false negative and false positive results. Results should be interpreted in the context of historic and current clinical findings. Reliability of the Pap Test is enhanced by performing the test on a regular repetitive basis. Patient: Sung Rios Age/Sex: 27/F MR#: [id number] Page 1 of 1 Assessment & Plan Assessment & Plan (1) Screening for malignant neoplasm of cervix: Comment: 02/12/23 Pap is negative, (with coxa bacilli. Gardnerella testing was positive.). Code(s): Z12.4 - Encounter for screening for malignant neoplasm of cervix Category: Medical (2) Well woman exam with routine gynecological exam: Code(s): Z01.419 - Encounter for gynecological examination (general) (routine) without abnormal findings Category: Medical (3) Screen for sexually transmitted diseases: Code(s): Z11.3 - Encounter for screening for infections with a predominantly sexual mode of transmission Category: Medical Plan -----Discussed in this visit the following: healthy balanced diet, regular and consistent exercise, getting recommended health screens, doing the best she can for her particular health concerns, kegel exercises, pap smear screening and followup recommendations, mammography screening and SBE, normal changes in cycles in her life stage--- She says her tinea isn't too bad she has a little on her back but she uses the Selsun blue for her hair all the time so that keeps it at bay She does not do any exercise but she works at [employer] likes it. She was not particularly worried about STDs, but she accepted testing with the exam for GC chlamydia trich Sandy and bacteria, but she did request blood work and she can get it done when she wishes, results will be on the portal unless positive. Pap was negative in 2022 she will be due for another 1 until 2025. Orders: Orders Hepatitis C Antibody Today Z01.419 - Encounter for gynecological examination (general) (routine) without abnormal findings, Z11.3 - Encounter for screening for infections with a predominantly sexual mode of transmission, Z12.4 - Encounter for screening for malignant neoplasm of cervix HIV Ab/Ag Today Z01.419 - Encounter for gynecological examination (general) (routine) without abnormal findings, Z11.3 - Encounter for screening for infections with a predominantly sexual mode of transmission, Z12.4 - Encounter for screening for malignant neoplasm of cervix Syphilis Screen Today Z01.419 - Encounter for gynecological examination (general) (routine) without abnormal findings, Z11.3 - Encounter for screening for infections with a predominantly sexual mode of transmission, Z12.4 - Encounter for screening for malignant neoplasm of cervix Hepatitis B Surface Antigen Today Z01.419 - Encounter for gynecological examination (general) (routine) without abnormal findings, Z11.3 - Encounter for screening for infections with a predominantly sexual mode of transmission, Z12.4 - Encounter for screening for malignant neoplasm of cervix Coding Level of Care Code Est Pt Prev Care 18-39y([id number]) Diagnoses Screening for malignant neoplasm of cervix Z12.4 Well woman exam with routine gynecological exam Z01.419 Screen for sexually transmitted diseases Z11.3
[2024-03-25 13:58] VITALS: BP 110/60; BMI 25.3
== END 2024-03-25 14:19 | disposition home or self-care (01) ==
LOC: HO.HWSM 13:52
PROVIDERS: PCP Internal Medicine; Visit Provider Advanced Practice Midwife
DX: Z12.4 Encounter for screening for malignant neoplasm of cervix (principal); Z01.419 Encounter for gynecological examination (general) (routine) without abnormal findings; Z11.3 Encounter for screening for infections with a predominantly sexual mode of transmission
CPT/HCPCS: 99395

== ENCOUNTER 2024-06-28 08:56 | Outpatient (AMB) | payer OTHER, SELFPAY ==
[2024-06-28 09:08] VITALS: BP 100/60; PULSE 67; BMI 25.3
--- NOTE | 2024-06-28 09:08 | A.OFFPC_ITS ---
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: Present Accompanied by: (Anurag) Is last menstrual period known: Yes Last menstrual period: 06/09/24 Allergies No Known Allergies Allergy (Verified 06/28/24 09:31) Medication List - Last Reconciled 06/28/24 by Autumn Diaz MD albuterol sulfate 90 mcg/actuation (Ventolin HFA) 2 puffs inhalation Q6H PRN albuterol sulfate 2.5 mg (0.5 mL) inhalation QID PRN ibuprofen 600 mg PO Q6H PRN montelukast (Singulair) 10 mg PO DAILY Tobacco use date assessed: 06/28/24 Dental Screening Dental Screen Date: 06/28/24 Did you have a dental visit in the last 12 months?: Yes Did you have a dental problem in the last 6 months where you did not have access to dental care?: Yes Was dental information given to patient?: Patient has dentist HPI PE HPI Details 28-year-old lady with history of mild in termittent asthma, here today for physical exam. She is up-to-date with her screening for cervical cancer, last Pap smear was done in 2022 with benign findings Has mild intermittent asthma, currently using Ventolin inhaler as needed for episodes of bronchospasm and wheezing, and lately has been eating to use it almost on a daily basis.. Also taking montelukast mg daily. Quit smoking on her own 3 months ago, no withdrawal symptom [facility] Medical History (Updated 07/01/24 @ 12:12 by Autumn Diaz MD) Vitamin D deficiency Former smoker Smoker unmotivated to quit Tinea versicolor Breast mass, right Mild intermittent asthma Surgical History History of breast surgery (~04/14/23) History of tubal ligation Hx of breast surgery Family History Mother Diabetes mellitus Hyperlipidemia CAD (coronary artery disease) Essential hypertension Asthma Maternal Grandmother Breast cancer Social History Housing: Apartment Alcohol intake: current Alcohol intake frequency: holidays/special occasions only Patient Tobacco Use Status: Former Tobacco user Tobacco use type: Cigarette Cigarettes Per Day: 3 e-Cigarette/Vaping Use: Former Use Current occupational status: employed Cognitive needs: No Hearing needs: No Vision needs: No Female Reproductive History Menstrual Age of Menarche: 7 Date of last menstrual period: 06/09/24 Questionnaire PHQ-9 Over the last 2 weeks, how often have you been bothered by any of the following problems? 1. Little interest or pleasure in doing things: not at all 2. Feeling down, depressed, or hopeless: not at all 3. Trouble falling or staying asleep, or sleeping too much: several days 4. Feeling tired or having little energy: several days 5. Poor appetite or overeating: not at all 6. Feeling bad about yourself - or that you are a failure or have let yourself or your family down: not at all 7. Trouble concentrating on things, such as reading the newspaper or watching television: not at all 8. Moving or speaking so slowly that other people could have noticed. Or the opposite - being so fidgety or restless that you have been moving around a lot more than usual: not at all 9. Thoughts that you would be better off or of hurting yourself in some way: not at all Total score: 2 Depression Screening Interpretation: Negative Depression Screening Done: Yes 21283 - PHQ-9 Billing: Yes Source: Developed by Drs. Milad Roman, Carole Munson, Jama Santamaria and colleagues, with an educational shaji from [employer]. Thrive Questionnaire Date Thrive assessed: 06/28/24 I am a: Patient What is your living situation today?: I have a steady place to live Within the past 12 months, did the food you bought not last and you didn't have the money to get more?: Never true Within the past 12 months, did you worry whether your food would run out before you got money to buy more?: Never true Do you have trouble paying for medicines?: No Do you have trouble getting transportation to medical appointments?: No Do you have trouble paying your heating and electricity bill?: No Do you have trouble taking care of your child, family member or friend?: No Do you have trouble with day-to-day activities such as bathing, preparing meals, shopping, managing finances, etc.?: No Are you currently unemployed and looking for a job?: No Are you interested in more education?: No Please select the resources that you would like help with: None Currently or been in a relationship where the following occur: No concerns reported THRIVE Score: 0 AUDIT C Alcohol Use Questionnaire (AUDIT-C) 1. How often do you have a drink containing alcohol?: Monthly or less 2. How many drinks containing alcohol do you have on a typical day when you are drinking?: 1 or 2 3. How often do you have six or more drinks on one occasion?: Never Total Score: 1 MANDA-7 AMB Questionnaire MANDA-7 Date MANDA - 7 assessed: 06/28/24 Feeling nervous, anxious, or on edge: 0 = Not at all Not being able to stop or control worryin = Not at all Worrying too much about different things: 0 = Not at all Trouble relaxin = Not at all Being so restless that it is hard to sit still: 0 = Not at all Becoming easily annoyed or irritable: 0 = Not at all Feeling afraid as if something awful might happen: 0 = Not at all Total MANDA-7 score (0-4 normal; 5-9 mild; 10-14 moderate; 15-21 severe): 0 Source: Developed by Drs. Milad Roman, Carole Munson, Jama Santamaria and colleagues, with an educational shaji from [employer]. MANDA-7 Assessment Billing MANDA-7 Assessment Tool: MANDA-7 Assessment 62233 Review of Systems Const Denies chills and Denies fever(s) Eyes Details: Goes to [facility] Reports requires corrective lenses (Positive myopia) ENT Reports no additional complaints Card Denies chest pain, Denies dyspnea and Denies dyspnea on exertion Resp Denies cough, Denies dyspnea and Denies dyspnea on exertion GI Denies hematochezia, Reports constipation, Denies dyspepsia and Denies heartburn Denies hematuria Musc Denies back pain and Denies limited range of motion Skin/Breast Denies breast pain, Denies breast mass and Denies rash Neuro Denies focal weakness and Denies convulsions Psych Denies depression and Denies mood swings Endo Reports no additional complaints Jayson/Lymph Reports no additional complaints Aller/Immun Reports no additional complaints Physical exam (Primary Care) Vital Signs: Last Vital Signs Pulse 67 06/28/24 09:08 BP 100/60 06/28/24 09:08 BMI result Body Mass Index 25.3 Tobacco/Smoking Status: Tobacco use Status Tobacco use date assessed 06/28/24 06/28/24 09:10 Patient Tobacco Use Status Former Tobacco user 06/28/24 09:10 Tobacco use type Cigarette 06/28/24 09:10 e-Cigarette/Vaping Use Former Use 06/28/24 09:10 Are you ready to quit: No PHQ-9: PHQ-9 Score PHQ-9: Total score 2 06/28/24 09:38 Depression Screening Interpretation: Negative Thrive Assessment: Date of Thrive Assessment Date Thrive assessed 06/28/24 06/28/24 09:15 Currently or been in a relationship where the following occur: No concerns reported Advance Care Planning discussion: Completed/Scanned Date of discussion: 06/28/24 Who was present: Patient and Forms completed: Health Care Proxy Time spent: 16-45 minutes Actual minutes spent: 16 Const General: comfortable and no acute distress Nutritional Appearance: average body habitus Orientation/consciousness: patient oriented x3 HENMT Head: Yes normocephalic Ears: hearing grossly normal bilaterally, external ears normal, TM's normal bilaterally and EAC's normal General nose exam: Normal external nose present and No nasal discharge present Face and sinus: Yes face symmetric Mouth: Normal oral and palatal mucosa present, oropharynx normal and moist mucous membranes Eyes General: appearance normal, both eyes and all related structures Neck Neck: Yes full ROM, Yes no lymphadenopathy, Yes no meningeal signs and Yes supple Thyroid: Thyroid normal Resp Effort & Inspection: normal respiratory effort and able to speak in complete sentences Auscultation: clear to auscultation bilaterally Cardio Rate: regular rate Rhythm: regular rhythm Heart sounds: S1 normal heart sound present and S2 normal heart sound present GI Inspection: Yes normal to inspection Palpation (GI): Soft to palpation, nontender, no guarding and no masses Auscultation: normal bowel sounds General: Yes no CVA tenderness and Yes deferred Back/Spine/Pelvis Back: no CVA tenderness and No back tenderness Neuro General: patient oriented x3, gait normal, tone normal, moves all extremities, Normal light touch and pain sensation, no meningeal signs, no focal motor deficits and CN's II-XI intact bilaterally Cognition (Neuro): normal cognition Gait exam (Neuro): Normal gait present Extrem General: Yes full ROM, Yes no joint enlargement, Yes no clubbing, cyanosis or edema, Yes no calf tenderness and Yes normal gait Psych Appearance: grossly normal and well kempt Mental Status: mental status grossly normal Speech and movement: Normal speech and movement present Affect: normal affect Attitude: cooperative Thought process: Normal thought process present Office Procedures Flu Questionnaire Does the patient have a severe egg allergy?: No Does the patient have severe life threatening allergies?: No Does the patient have a fever or illness today?: No Has the patient ever had Guillain-[place] Syndrome?: No Has the patient ever had any past reaction to a flu shot?: No Immunizations Fluarix Triv [id number] (PF) 45 mcg (15 mcg x 3)/0.5 mL IM syringe Performing Provider: Autumn Diaz MD Performing Location: [facility] [place] [facility] Administered by: Radha Huertas CMA on 06/28/24 10:00 Dose Route Admin Location Dispensed Lot Number Expiration Date [facility] Buckle Attaching Machine Operator 0.5 mL IM Right Deltoid 0.5 mL [id number] 02/27/25 10370-233-15 [facility] VIS Given Date VIS Provided VIS Publication Date 06/28/24 Single Vaccine 21 Eligibility Eligibility Date Funding Source Not [facility] Eligible 06/28/24 Private Coding Level of Care Code Est Pt Prev Care 18-39y(09170) Diagnoses Mild intermittent asthma without complication J45.20 Asthma complication type: uncomplicated Annual visit for general adult medical examination with abnormal findings Z00.01 Former smoker Z87.891 Advanced directives, counseling/discussion Z71.89 Additional Codes MANDA-7 Assessment Billing - MANDA-7 Assessment Tool: MANDA-7 Assessment 53750 ([id number]) Vital Signs *Quality* - Advance Care Planning discussion: Completed/Scanned ([id number]) Vital Signs *Quality* - Time spent: 16-45 minutes ([id number]) Assessment & Plan Assessment & Plan (1) Mild intermittent asthma: Code(s): J45.20 - Mild intermittent asthma, uncomplicated Category: Medical Qualifiers: Asthma complication type: uncomplicated Qualified Code(s): J45.20 - Mild intermittent asthma, uncomplicated Plan: Continue with montelukast 10 mg daily and albuterol inhaler, to be used only as needed for acute episodes of bronchospasm and wheezing. Started on Symbicort 160-4.51 inhalation every 12 hours, rinse mouth after use. Flu vaccine given today. Reminded to get COVID booster., up-to-date with her pneumococcal vaccination (2) Annual visit for general adult medical examination with abnormal findings: Code(s): Z00.01 - Encounter for general adult medical examination with abnormal findings Plan: Will check appropriate labs. Recommended dental visit every 6 months and regular eye exams, at least every 2 years. Take adequate calcium in diet and vitamin-D 3 at 2000 IU per cap once a day, in addition to weight-bearing exercises to help maintain good muscle tone and weight control. Instructed to do self-breast exam, and recommended to get yearly mammogram, starting at age 40. Immunization information provided: Yearly flu vaccine given today, up-to-date with her pneumococcal vaccination and Tdap, reminded to get her COVID booster (3) Former smoker: Code(s): Z87.891 - Personal history of nicotine dependence Category: Social Hx Plan: Has quit smoking on her own 3 months ago without any withdrawal symptoms (4) Advanced directives, counseling/discussion: Code(s): Z71.89 - Other specified counseling Plan: Initiated the conversation about Advanced Directives. Advanced Directives help patients prepare for current and future decisions about their medical treatment and place of care. Discussed with patient that it is a process where a patients current condition and prognosis are reviewed, their wishes for information regarding their illness are elicited, and likely medical dilemmas are presented and options discussed. Healthcare proxy form completed today The form can be amended as needed, reviewed yearly and make changes as needed Orders: Orders Basic Metabolic Panel Fasting 06/30/24 Z00.01 - Encounter for general adult medical examination with abnormal findings, Z13.1 - Encounter for screening for diabetes mellitus, Z13.220 - Encounter for screening for lipoid disorders Lipid Panel 06/30/24 Z00.01 - Encounter for general adult medical examination with abnormal findings, Z13.1 - Encounter for screening for diabetes mellitus, Z13.220 - Encounter for screening for lipoid disorders Alanine Aminotransferase 06/30/24 Z00.01 - Encounter for general adult medical examination with abnormal findings, Z13.1 - Encounter for screening for diabetes mellitus, Z13.220 - Encounter for screening for lipoid disorders Aspartate Amino Transferase 06/30/24 Z00.01 - Encounter for general adult medical examination with abnormal findings, Z13.1 - Encounter for screening for diabetes mellitus, Z13.220 - Encounter for screening for lipoid disorders Vitamin D 25-OH Total 06/30/24 Z00.01 - Encounter for general adult medical examination with abnormal findings, Z13.1 - Encounter for screening for diabetes mellitus, Z13.220 - Encounter for screening for lipoid disorders Influenza [id number] Immunization 06/28/24 Z23 - Encounter for immunization Medications: New budesonide-formoterol 160-4.5 mcg/actuation 2 puffs inhalation Q12H 1 month 1 0.2 grams 4RF J45.20 - Mild intermittent asthma, uncomplicated
== END 2024-06-28 10:11 | disposition home or self-care (01) ==
LOC: HO.HMCC 08:57
PROVIDERS: PCP Internal Medicine; Visit Provider Internal Medicine
DX: J45.20 Mild intermittent asthma, uncomplicated (principal); Z00.01 Encounter for general adult medical examination with abnormal findings; Z87.891 Personal history of nicotine dependence; Z71.89 Other specified counseling; Z00.00 Encounter for general adult medical examination without abnormal findings

== ENCOUNTER → 2024-06-28 08:56 | Outpatient (BNVA) | payer OTHER, SELFPAY | PROVIDERS: PCP Internal Medicine; Visit Provider Internal Medicine | DX: Z00.01 Encounter for general adult medical examination with abnormal findings (principal); J45.20 Mild intermittent asthma, uncomplicated; Z87.891 Personal history of nicotine dependence; Z71.89 Other specified counseling; Z23 Encounter for immunization | CPT/HCPCS: 90471; 90656; 96127 ==

== ENCOUNTER 2024-06-30 08:27 | Outpatient (REF) | payer OTHER, SELFPAY ==
[2024-06-30 10:53] LABS: Alanine Aminotransferase 14 U/L (0-31); Anion Gap 10 (12-20); Aspartate Amino Transferase 17 U/L (5-31); Blood Urea Nitrogen 13 mg/dL (9-16); Calcium 9.3 mg/dL (8.4-10.2); Carbon Dioxide 24 mmol/L (22-29); Chloride 111 mmol/L (96-108); Cholesterol 118 mg/dL (<200); Estimated Glomerular Filt Rate > 60; Glucose Fasting 91 mg/dL (60-99); HDL Cholesterol 53 mg/dL (>40); LDL Cholesterol Calculated 52 mg/dL (<100); Potassium 4.2 mmol/L (3.3-5.1); Sodium 141 mmol/L (135-145); Triglycerides 65 mg/dL (<150)
[2024-06-30 10:54] LABS: Vitamin D 25-OH Total 19.7 ng/mL (>30)
== END 2024-06-30 08:28 | disposition home or self-care (01) ==
LOC: HO.HMGCLDS 08:27
PROVIDERS: PCP Internal Medicine; Visit Provider Internal Medicine
DX: Z00.01 Encounter for general adult medical examination with abnormal findings (principal); Z13.220 Encounter for screening for lipoid disorders; Z13.1 Encounter for screening for diabetes mellitus
CPT/HCPCS: 36415; 80048; 80061; 82306; 84450; 84460

== ENCOUNTER 2025-07-04 09:14 | Outpatient (REF) | payer OTHER, SELFPAY ==
[2025-07-04 13:44] LABS: Anion Gap 6 (12-20); Blood Urea Nitrogen 12 mg/dL (9-16); Calcium 8.7 mg/dL (8.4-10.2); Carbon Dioxide 26 mmol/L (22-29); Chloride 112 mmol/L (96-108); Cholesterol 126 mg/dL (<200); Estimated Glomerular Filt Rate > 60; HDL Cholesterol 58 mg/dL (>40); Potassium 4.1 mmol/L (3.3-5.1); Sodium 140 mmol/L (135-145); Triglycerides 37 mg/dL (<150)
== END 2025-07-04 09:15 | disposition home or self-care (01) ==
LOC: HO.HMGCLDS 09:14
PROVIDERS: PCP Internal Medicine; Visit Provider Internal Medicine
DX: Z00.01 Encounter for general adult medical examination with abnormal findings (principal); E55.9 Vitamin D deficiency, unspecified; J45.20 Mild intermittent asthma, uncomplicated; M54.50 Low back pain, unspecified; M79.645 Pain in left finger(s); M79.644 Pain in right finger(s); M25.532 Pain in left wrist; M25.531 Pain in right wrist; Z23 Encounter for immunization
CPT/HCPCS: 36415; 80048; 80061; 82306; 90471; 90656; 96127

== ENCOUNTER 2025-07-04 09:14 | Outpatient (AMB) | payer OTHER, SELFPAY ==
--- NOTE | 2025-07-04 09:17 | A.OFFPC_ITS ---
Vital Signs 07/04/25 09:18 Height 5 ft 6 in Weight 157 lb BMI 25.3 BP 100/62 Blood Pressure Location Rt brachial Position Sitting Respiration 16 Pulse 66 Pulse Source Pulse Oximeter Temp 98.1 F Temp Source Oral Pulse Oximetry (%) 96 Oxygen Delivery Method Room Air Intake Visit Reasons: PE Intake Note: Pt is here today for her PE: last papsmear 02/13/23 Plate Maker Zinc Required: No Is last menstrual period known: Yes Last menstrual period: 06/24/25 Allergies No Known Allergies Allergy (Verified 07/04/25 09:19) Medication List - Last Reconciled 07/04/25 by Autumn Diaz MD albuterol sulfate 90 mcg/actuation (Ventolin HFA) 2 puffs inhalation Q6H PRN albuterol sulfate 2.5 mg (0.5 mL) inhalation QID PRN budesonide-formoterol 160-4.5 mcg/actuation 2 puffs inhalation Q12H 1 month ibuprofen 600 mg PO Q6H PRN montelukast (Singulair) 10 mg PO DAILY Tobacco use date assessed: 07/04/25 Dental Screening Dental Screen Date: 07/04/25 Did you have a dental visit in the last 12 months?: Yes Did you have a dental problem in the last 6 months where you did not have access to dental care?: Yes Was dental information given to patient?: Patient has dentist HPI PE HPI Details 29-year-old lady here today for her phys ical exam. She is up-to-date with her cervical cancer screening, goes to [facility] with last Pap smear was done in 2022. Has mild intermittent asthma , currently on Symbicort, on montelukast 10 mg daily, and uses albuterol inhaler as needed . Asthma symptoms stable and controlled on present treatment Has history of vitamin-D deficiency, currently not taking any vitamin D3 supplements. Complains of recurrent pain in fingers and bilateral thumbs as well as recurrent low back pain. 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 [facility] Medical History (Updated 07/04/25 @ 09:33 by Autumn Diaz MD) Vitamin D deficiency Former smoker Tinea versicolor Breast mass, right Mild intermittent asthma Surgical History (Updated 07/04/25 @ 09:33 by Autumn Diaz MD) History of breast surgery (~04/14/23) History of tubal ligation Hx of breast surgery Family History Mother Diabetes mellitus Hyperlipidemia CAD (coronary artery disease) Essential hypertension Asthma Maternal Grandmother Breast cancer Social History Housing: Apartment Alcohol intake: current Alcohol intake frequency: holidays/special occasions only Patient Tobacco Use Status: Former Tobacco user Tobacco use type: Cigarette Cigarettes Per Day: 3 e-Cigarette/Vaping Use: Former Use Current occupational status: employed Cognitive needs: No Hearing needs: No Vision needs: No Female Reproductive History Menstrual Age of Menarche: 7 Date of last menstrual period: 06/24/25 Date of last pap smear: 02/13/23 Other: Goes to [facility] for her routine Pap and pelvic exam Questionnaire PHQ-9 Over the last 2 weeks, how often have you been bothered by any of the following problems? 1. Little interest or pleasure in doing things: not at all 2. Feeling down, depressed, or hopeless: not at all 3. Trouble falling or staying asleep, or sleeping too much: not at all 4. Feeling tired or having little energy: not at all 5. Poor appetite or overeating: not at all 6. Feeling bad about yourself - or that you are a failure or have let yourself or your family down: not at all 7. Trouble concentrating on things, such as reading the newspaper or watching t elevision: not at all 8. Moving or speaking so slowly that other people could have noticed. Or the opposite - being so fidgety or restless that you have been moving around a lot more than usual: not at all 9. Thoughts that you would be better off or of hurting yourself in some way: not at all Total score: 0 Depression Screening Interpretation: Negative Depression Screening Done: Yes 99185 - PHQ-9 Billing: Yes Source: Developed by Drs. Milad Roman, Carole Munson, Jama Santamaria and colleagues, with an educational shaji from [employer]. Thrive Questionnaire Date Thrive assessed: 07/04/25 I am a: Patient What is your living situation today?: I have a steady place to live Within the past 12 months, did the food you bought not last and you didn't have the money to get more?: Never true Within the past 12 months, did you worry whether your food would run out before you got money to buy more?: Never true Do you have trouble paying for medicines?: No Do you have trouble getting transportation to medical appointments?: No Do you have trouble paying your heating and electricity bill?: No Do you have trouble taking care of your child, family member or friend?: No Do you have trouble with day-to-day activities such as bathing, preparing meals, shopping, managing finances, etc.?: No Are you currently unemployed and looking for a job?: No Are you interested in more education?: No Please select the resources that you would like help with: None Currently or been in a relationship where the following occur: No concerns reported THRIVE Score: 0 AUDIT C Alcohol Use Questionnaire (AUDIT-C) 1. How often do you have a drink containing alcohol?: Monthly or less Total Score: 1 MANDA-7 AMB Questionnaire MANDA-7 Date MANDA - 7 assessed: 07/04/25 Feeling nervous, anxious, or on edge: 0 = Not at all Not being able to stop or control worryin = Not at all Worrying too much about different things: 0 = Not at all Trouble relaxin = Not at all Being so restless that it is hard to sit still: 0 = Not at all Becoming easily annoyed or irritable: 0 = Not at all Feeling afraid as if something awful might happen: 0 = Not at all Total MANDA-7 score (0-4 normal; 5-9 mild; 10-14 moderate; 15-21 severe): 0 Source: Developed by Drs. Milad Roman, Carole Munson, Jama Santamaria and colleagues, with an educational shaji from [employer]. MANDA-7 Assessment Billing MANDA-7 Assessment Tool: MANDA-7 Assessment 74355 Review of Systems Const Denies chills and Denies fever(s) Eyes Details: Goes to [facility] Reports requires corrective lenses ( myopia) ENT Reports no additional complaints Card Denies chest pain, Denies dyspnea and Denies dyspnea on exertion Resp Denies cough, Denies dyspnea and Denies dyspnea on exertion GI Denies hematochezia, Reports constipation, Denies dyspepsia and Denies heartburn Denies hematuria Musc Reports back pain (Occasional lower back pain) and Denies limited range of motion Skin/Breast Denies breast pain, Denies breast mass and Denies rash Neuro Denies focal weakness and Denies convulsions Psych Denies depression and Denies mood swings Endo Reports no additional complaints Jayson/Lymph Reports no additional complaints Aller/Immun Reports no additional complaints Physical exam (Primary Care) Vital Signs: Last Vital Signs Temp 98.1 F 07/04/25 09:18 Pulse 66 07/04/25 09:18 Resp 16 07/04/25 09:18 BP 100/62 07/04/25 09:18 Pulse Ox 96 07/04/25 09:18 Oxygen Delivery Method Room Air 07/04/25 09:18 BMI result Body Mass Index 25.3 Tobacco/Smoking Status: Tobacco use Status Tobacco use date assessed 07/04/25 07/04/25 09:23 Patient Tobacco Use Status Former Tobacco user 07/04/25 09:17 Tobacco use type Cigarette 07/04/25 09:17 e-Cigarette/Vaping Use Former Use 07/04/25 09:17 Depression Screening Interpretation: Negative Thrive Assessment: Date of Thrive Assessment Date Thrive assessed 06/28/24 07/04/25 09:17 Currently or been in a relationship where the following occur: No concerns reported Const General: comfortable and no acute distress Nutritional Appearance: average body habitus Orientation/consciousness: patient oriented x3 HENMT Head: Yes normocephalic Ears: hearing grossly normal bilaterally, external ears normal, TM's normal bilaterally and EAC's normal General nose exam: Normal external nose present Face and sinus: Yes face symmetric Mouth: Normal oral and palatal mucosa present and moist mucous membranes Eyes General: appearance normal, both eyes and all related structures Neck Neck: Yes full ROM, Yes no lymphadenopathy, Yes no meningeal signs and Yes supple Thyroid: Thyroid normal Chest Chest palpation & inspection: normal inspection of the chest Breast/axilla palpation: normal palpation of the breasts Resp Effort & Inspection: normal respiratory effort and able to speak in complete sentences Auscultation: clear to auscultation bilaterally Cardio Rate: regular rate Rhythm: regular rhythm Heart sounds: S1 normal heart sound present and S2 normal heart sound present GI Inspection: Yes normal to inspection Palpation (GI): Soft to palpation, nontender, no guarding and no masses Auscultation: normal bowel sounds General: Yes no CVA tenderness and Yes deferred Back/Spine/Pelvis Back: no CVA tenderness and No back tenderness Skin General skin exam: no rashes or lesions noted Neuro General: patient oriented x3, gait normal, moves all extremities, no meningeal signs and no focal motor deficits Cognition (Neuro): normal cognition Gait exam (Neuro): Normal gait present Extrem Other: Negative Phalen's or Tinel's sign General: Yes full ROM, Yes no joint enlargement, Yes no clubbing, cyanosis or edema, Yes no calf tenderness and Yes normal gait Psych Appearance: grossly normal and well kempt Mental Status: mental status grossly normal Speech and movement: Normal speech and movement present Affect: normal affect Office Procedures Flu Questionnaire Does the patient have a severe egg allergy?: No Does the patient have severe life threatening allergies?: No Does the patient have a fever or illness today?: No Has the patient ever had Guillain-Dows Syndrome?: No Has the patient ever had any past reaction to a flu shot?: No Immunizations Fluarix 0738-7106 (PF) 45 mcg (15 mcg x 3)/0.5 mL IM syringe Performing Provider: Autumn Diaz MD Performing Location: [facility] Administered by: Radha Huertas CMA on 07/04/25 09:29 Dose Route Admin Location Dispensed Lot Number Expiration Date [facility] [employer] 0.5 mL IM Right Deltoid 0.5 mL [id number] 02/27/26 [id number] [employer] VIS Given Date VIS Provided VIS Publication Date 07/04/25 Single Vaccine 24 Eligibility Eligibility Date Funding Source Not [facility] Eligible 07/04/25 Private Coding Level of Care Code Est Pt Prev Care 18-39y(60965) Diagnoses Annual visit for general adult medical examination with abnormal findings Z00.01 Vitamin D deficiency E55.9 Mild intermittent asthma without complication J45.20 Asthma complication type: uncomplicated Pain of both wrist joints M25.531; M25.532 Joint pain location: wrist Laterality: bilateral Additional Codes PHQ-9 - 31791 - PHQ-9 Billing: Yes ([id number]) MANDA-7 Assessment Billing - MANDA-7 Assessment Tool: MANDA-7 Assessment 95304 ([id number]) Assessment & Plan Assessment & Plan (1) Annual visit for general adult medical examination with abnormal findings: Code(s): Z00.01 - Encounter for general adult medical examination with abnormal findings Plan: Will check appropriate labs. Recommended dental visit every 6 months and regular eye exams, at least every 2 years. Take adequate calcium in diet and vitamin-D 3 at 2000 IU per cap once a day, in addition to weight-bearing exercises to help maintain good muscle tone and weight control. Instructed to do self-breast exam, and recommended to get yearly mammogram, starting at age 40. Has an appointment with her [facility] clinic July 25 for her routine Pap and pelvic exam. flu vaccine given today but declines getting further COVID vaccinations, up-to-date with her pneumonia vaccine and Tdap (2) Vitamin D deficiency: Code(s): E55.9 - Vitamin D deficiency, unspecified Category: Medical Plan: Will check vitamin-D level, recommended to start taking ovip-ldq-cifobjq vitamin D3 2000 units daily (3) Mild intermittent asthma: Code(s): J45.20 - Mild intermittent asthma, uncomplicated Category: Medical Qualifiers: Asthma complication type: uncomplicated Qualified Code(s): J45.20 - Mild intermittent asthma, uncomplicated Plan: Stable controlled on present treatment. Refill sent for her inhaler and nebulizer solution (4) Arthralgia: Code(s): M25.50 - Pain in unspecified joint Qualifiers: Joint pain location: wrist Laterality: bilateral Qualified Code(s): M25.531 - Pain in right wrist; M25.532 - Pain in left wrist Plan: Likely due to repetitive movement , at work. Try massaging affected joints with Advil ointment as needed resting of joint advised. Orders: Orders Vitamin D 25-OH Total Today E55.9 - Vitamin D deficiency, unspecified, J45.20 - Mild intermittent asthma, uncomplicated, Z00.01 - Encounter for general adult medical examination with abnormal findings Lipid Panel Today E55.9 - Vitamin D deficiency, unspecified, J45.20 - Mild intermittent asthma, uncomplicated, Z00.01 - Encounter for general adult medical examination with abnormal findings Influenza [id number] Immunization Today Z23 - Encounter for immunization Basic Metabolic Panel Fasting Today E55.9 - Vitamin D deficiency, unspecified, J45.20 - Mild intermittent asthma, uncomplicated, Z00.01 - Encounter for general adult medical examination with abnormal findings Medications: Refilled budesonide-formoterol 160-4.5 mcg/actuation 2 puffs inhalation Q12H 10.2 grams 5RF 1 month J45.20 - Mild intermittent asthma, uncomplicated albuterol sulfate 2.5 mg (0.5 mL) inhalation QID PRN 30 ea 0RF shortness of breath or wheezing albuterol sulfate 90 mcg/actuation (Ventolin HFA) 2 puffs inhalation Q6H PRN 8.5 grams 2RF shortness of breath or wheezing
[2025-07-04 09:18] VITALS: BP 100/62; PULSE 66; RESP 16; TEMP 36.7; O2SAT 96; BMI 25.3
== END 2025-07-04 10:10 | disposition home or self-care (01) ==
LOC: HO.HMCC 09:14
PROVIDERS: PCP Internal Medicine; Visit Provider Internal Medicine
DX: Z00.01 Encounter for general adult medical examination with abnormal findings (principal); E55.9 Vitamin D deficiency, unspecified; J45.20 Mild intermittent asthma, uncomplicated; M25.531 Pain in right wrist; M25.532 Pain in left wrist; Z23 Encounter for immunization

== ENCOUNTER 2025-07-24 13:49 | Outpatient (AMB) | payer OTHER, SELFPAY ==
--- NOTE | 2025-07-24 14:01 | MHC.OFFVIS ---
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: General Accounting Manager Present (Tori) Accompanied by: Self / Same As Patient Allergies No Known Allergies Allergy (Verified 07/24/25 14:06) Medication List - Last Reconciled 07/24/25 by Zara Box CNM albuterol sulfate 90 mcg/actuation (Ventolin HFA) 2 puffs inhalation Q6H PRN albuterol sulfate 2.5 mg (3 mL) inhalation Q6H budesonide-formoterol 160-4.5 mcg/actuation 2 puffs inhalation Q12H 1 month ibuprofen 600 mg PO Q6H PRN montelukast (Singulair) 10 mg PO DAILY Is last menstrual period known: Yes Last menstrual period: 06/26/25 Post menopausal: No Patient : No HPI HPI 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 She admits to the biomedical engineer that she does not drink much water. She works in [employer] she does not have to work black Thursday. She had her tubes tied after her 2nd she is content with that. She has her 2 children and they are doing well. She has no concerns about STIs but is open to testing with the Pap smear. Her last menstrual period was June 26 to [facility] Medical History (Updated 07/24/25 @ 14:44 by Zara Box CNM) Vitamin D deficiency Former smoker Tinea versicolor Breast mass, right Mild intermittent asthma Surgical History (Updated 07/24/25 @ 14:44 by Zara Box CNM) History of breast surgery (~04/14/23) History of tubal ligation Hx of breast surgery Family History Mother Diabetes mellitus Hyperlipidemia CAD (coronary artery disease) Essential hypertension Asthma Maternal Grandmother Breast cancer Social History Housing: Apartment Alcohol intake: current Alcohol intake frequency: holidays/special occasions only Patient Tobacco Use Status: Former Tobacco user Tobacco use type: Cigarette Cigarettes Per Day: 3 e-Cigarette/Vaping Use: Former Use Current occupational status: employed Cognitive needs: No Hearing needs: No Vision needs: No Female Reproductive History Menstrual Age of Menarche: 7 Duration of menses: 3-5 days Date of last menstrual period: 06/26/25 control method: permanent sterilization Total pregnancies: 2 Full term: 2 Physical Exam Vital Signs: Last Vital Signs BP 102/66 07/24/25 14:08 BMI result Body Mass Index 25.0 Const General: healthy appearing, comfortable, no acute distress, well developed and alert Nutritional Appearance: average body habitus Orientation/consciousness: patient oriented x3 Limitations: no limitations HEENT Head: Yes normocephalic Neck Neck: Yes normal visual inspection Chest Chest palpation & inspection: normal inspection of the chest Breast/axilla inspection: normal inspection of the breasts and normal inspection of the axillae Breast/axilla palpation: normal palpation of the breasts and normal palpation of the axillae Resp Effort & Inspection: normal respiratory effort GI Inspection: Yes normal to inspection, No Abdominal wall edema and No distended Palpation (GI): Soft to palpation and nontender Other: External exam within normal limits vagina is pink and moist very clear cervix nulliparous pink smooth healthy appearing scant to no mucus or discharge whatsoever cervix is long close thick small mobile nontender uterus is small anteverted mobile nontender adnexa nontender patient has fair tone with Kegel General: Yes bladder normal to palpation External Female Exam: normal external appearance and normal appearance of the urethra Speculum Exam - Vagina: normal appearance of the vagina, normal palpation and normal vaginal discharge Speculum Exam - Cervix: normal appearance of the cervix, normal palpation and nontender Bimanual exam- vagina & uterus: normal bimanual exam, normal palpation, uterine size normal, bladder normal to palpation, consistency normal, normal palpation, uterine mobility normal, uterine shape normal, No Cervical tenderness present, non-tender and no cervical motion tenderness Bimanual Exam- Adnexa, other: normal adnexae, no masses, normal and No adnexal tenderness Neuro General: patient oriented x3 Results Reviewed Results Reviewed: Name: Denis RomanSung Age/Sex: 27/F Attending: Zara Box CNM : 1995 Submitted by: Zara Box CNM Copies to: Autumn Diaz MD MR #: [id number] Status: DEP REF Collected: 02/12/23 Location: [facility] Received: 02/13/23 Interpretation Satisfactory for evaluation. Coccobacilli consistent with shift in vaginal gunjan. Negative for intraepithelial lesion or malignancy. Clinical Information LMP: 01/12/23 Previous PAP test: Unknown date/findings Material Received ThinPrep-Cervical Copies To Autumn Diaz MD [address] [place] [address] [place], [place] [id number] Electronically Signed By: ANA Carlin (ASCP) 03/09/23 1410 The Pap Test is a screening procedure with the inherent possibility of both false negative and false positive results. Results should be interpreted in the context of historic and current clinical findings. Reliability of the Pap Test is enhanced by performing the test on a regular repetitive basis. Patient: Sung Rios Age/Sex: 27/F MR#: [id number] Page 1 of 1 Assessment & Plan Assessment & Plan (1) Screening for malignant neoplasm of cervix: Code(s): Z12.4 - Encounter for screening for malignant neoplasm of cervix Category: Medical (2) Encounter for screening examination for sexually transmitted disease: Code(s): Z11.3 - Encounter for screening for infections with a predominantly sexual mode of transmission Category: Medical (3) Screen for sexually transmitted diseases: Code(s): Z11.3 - Encounter for screening for infections with a predominantly sexual mode of transmission Category: Medical (4) Screening for malignant neoplasm of cervix: Comment: 6/15/23 Pap is negative, (with coxa bacilli. Gardnerella testing was positive.). Code(s): Z12.4 - Encounter for screening for malignant neoplasm of cervix Category: Medical (5) Well woman exam with routine gynecological exam: Code(s): Z01.419 - Encounter for gynecological examination (general) (routine) without abnormal findings Category: Medical (6) History of tubal ligation: Code(s): Z98.51 - Tubal ligation status Category: Medical Plan Pap smear was done in this visit as well as testing for gonorrhea chlamydia trichomoniasis bacterial vaginosis and yeast. Discussed keeping herself as healthy as she can which she is clearly doing eating well being active and exercising at in Kegel's to the mix as below and drinking lots of water to keep her urine clear and avoiding holding it. Discussed in this visit the following: healthy balanced diet, regular and consistent exercise, getting recommended health screens, doing the best she can for her particular health concerns, kegel exercises, pap smear screening and followup recommendations, mammography screening and SBE, normal changes in cycles in her life stage--- instructed on Kegel's.. Recommend occasional tightening but also drinking lots of water and not holding her urine----- . RTC 1 year if she has no issues whatsoever ,-at least keep her primary care appointment. Coding Level of Care Code Est Pt Prev Care 18-39y(65563) Diagnoses Screening for malignant neoplasm of cervix Z12.4 Encounter for screening examination for sexually transmitted disease Z11.3 Screen for sexually transmitted diseases Z11.3 Screening for malignant neoplasm of cervix Z12.4 Well woman exam with routine gynecological exam Z01.419 History of tubal ligation Z98.51
[2025-07-24 14:08] VITALS: BP 102/66; BMI 25.0
== END 2025-07-24 14:42 | disposition home or self-care (01) ==
LOC: HO.HWSM 13:49
PROVIDERS: PCP Internal Medicine; Visit Provider Advanced Practice Midwife
DX: Z01.419 Encounter for gynecological examination (general) (routine) without abnormal findings (principal); Z11.3 Encounter for screening for infections with a predominantly sexual mode of transmission; Z98.51 Tubal ligation status
CPT/HCPCS: 99395; 99459

== ENCOUNTER 2025-07-24 13:49 | Outpatient (REF) | payer OTHER, SELFPAY ==
[2025-07-24 23:13] LABS: Bacterial Vaginosis PCR NEGATIVE (Negative); Candida Group PCR NOT DETECTED (Not Detect); Candida glab krusei PCR NOT DETECTED (Not Detect); Trichomonas vaginalis PCR NOT DETECTED (Not Detect)
[2025-07-24 23:45] LABS: CT PCR NOT DETECTED (Not Detect.); NG PCR NOT DETECTED (Not Detect.)
== END 2025-07-24 13:50 | disposition home or self-care (01) ==
LOC: HO.LNP 13:49
PROVIDERS: PCP Internal Medicine; Visit Provider Advanced Practice Midwife
DX: Z01.419 Encounter for gynecological examination (general) (routine) without abnormal findings (principal); Z20.2 Contact with and (suspected) exposure to infections with a predominantly sexual mode of transmission; Z98.51 Tubal ligation status
CPT/HCPCS: 81515; 87491; 87591; 88175